=== PATIENT | female | born 1965 | race Caucasian/White ===

== ENCOUNTER → 2023-10-30 07:26 | Outpatient (CLI) | payer BC, SELFPAY ==
--- NOTE | ~2023-10-30 | MR_ITS ---
MRI of the lumbar spine Clinical History: Radiculopathy Technique: Axial T2-weighted images, and sagittal T1-weighted, T2-weighted, and T2 fat-sat images wer e acquired. Findings: There is no fracture or subluxation of the lumbar spine. Vertebral bodies maintain normal h eight and alignment. No bone marrow signal reality seen. At L1-L2, there is minimal disc bulge with moderate facet arthropathy. No central canal stenosis or n eural foraminal narrowing evident. At L2-L3, there is minimal disc bulge and moderate to advanced facet arthropathy. There is moderate c entral canal stenosis/thecal sac compression. Neural foramina are preserved. At L3-L4, there is disc bulge and severe facet arthropathy, resulting in severe spinal canal stenosis /thecal sac compression. There is mild to moderate right neural foraminal narrowing, and minimal left neural foraminal narrowing. At L4-L5, there is mild disc bulge and severe facet arthropathy. There is mild to moderate central ca nal stenosis. There is moderate bilateral neural foraminal narrowing. At L5-S1, there is disc bulge and moderate facet arthropathy. No central canal stenosis. There is mod erate bilateral neural foraminal narrowing. Paravertebral soft tissues are unremarkable. Impression: Moderate to advanced degenerative spondylosis, as detailed above. Reviewed, dictated and finalized at [facility]. [employer]DER Impression: Moderate to advanced degenerative spondylosis, as detailed above.
== END ==
DX: M54.41 Lumbago with sciatica, right side (principal); M47.816 Spondylosis without myelopathy or radiculopathy, lumbar region
CPT/HCPCS: 72148